=== PATIENT | female | born 1950 | race Caucasian/White ===

== ENCOUNTER 2025-08-25 20:08 | Emergency (ER) | payer OTHER, MEDICAID ==
[~2025-08-25] VITALS: Ht 167.6 cm; Wt 70.0 kg
[2025-08-25 20:12] VITALS: O2SAT 99
[2025-08-25 20:59] LABS: BASOPHILS % 1.6 % (0.0-2.0); EOSINOPHILS % 2.7 % (0.0-5.0); HEMATOCRIT. 42.4 % (36.0-48.0); HEMOGLOBIN. 13.7 g/dL (12.0-16.0); LYMPHOCYTES % 41.6 % (20.0-50.0); MEAN PLATELET VOLUME 7.9 fl (7.4-10.4); MONOCYTES % 6.5 % (2.0-8.0); NEUTROPHILS % 47.6 % (40.0-76.0); PLATELET 350 x1000/uL (130-400); RED BLOOD CELL COUNT 5.17 mill/uL (4.2-5.4); RED CELL DISTRIBUTION WIDTH 17.9 % (11.6-14.6)
[2025-08-25 21:07] LABS: CREATININE 1.1 mg/dL (0.6-1.0); UREA NITROGEN BLOOD 14 mg/dL (9-23)
[2025-08-25 21:08] LABS: TROPONIN I HIGH SENSITIVITY 6 ng/L (3.0-34)
[2025-08-25 21:09] LABS: ASPARTATE AMINOTRANSFERASE 28 IU/L (<34)
[2025-08-25 21:10] LABS: BILIRUBIN DIRECT < 0.1 mg/dL (<=3.0); BILIRUBIN TOTAL 0.4 mg/dL (0.1-1.0); PROTEIN TOTAL 7.6 g/dL (6.0-8.3)
[2025-08-25] MEDS: NITROGLYCERIN OINT 1GM/INCH UDPKT TD ONE (21:38)
[2025-08-25 23:46] LABS: TROPONIN I HIGH SENSITIVITY 12 ng/L (3.0-34)
[2025-08-26 01:09] VITALS: BP 144/60; PULSE 61; RESP 15; TEMP 36.7; O2SAT 97
== END 2025-08-26 01:28 | disposition short-term general hospital (02) ==
LOC: ER 20:08 → CMPBEDREQ 08-26 08:02
DX: R07.89 Other chest pain (principal); E11.9 Type 2 diabetes mellitus without complications; E78.00 Pure hypercholesterolemia, unspecified; I10 Essential (primary) hypertension; Z86.73 Personal history of transient ischemic attack (TIA), and cerebral infarction without residual deficits
CPT/HCPCS: 36415; 71045; 80048; 80076; 84484; 85025; 93005; 99285